=== PATIENT | male | born 1995 ===

== ENCOUNTER 2018-01-05 19:43 | Emergency (ER) | payer SELFPAY | END 2018-01-05 20:31 | disposition left against medical advice (07) | LOC: ER 19:43 | DX: Z53.20 Procedure and treatment not carried out because of patient's decision for unspecified reasons (principal) ==

== ENCOUNTER 2018-01-06 18:54 | Emergency (ER) | payer SELFPAY ==
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
== END 2018-01-06 20:27 | disposition left against medical advice (07) ==
LOC: ER 18:54
DX: S09.92XA Unspecified injury of nose, initial encounter (principal); W51.XXXA Accidental striking against or bumped into by another person, initial encounter
CPT/HCPCS: 99281

== ENCOUNTER 2018-08-11 05:25 | Emergency (ER) | payer SELFPAY ==
--- NOTE | 2018-08-11 05:43 | Emergency Department Record ---
History of Present Illness - General Chief complaint: Extremity Problem Stated complaint: FINGER INFECTION Time Seen by Provider: 08/11/18 05:42 Source: Patient Mode of Arrival: Ambulatory Limitations: No limitations - History of Present Illness Initial comments: pt started having swelling and pain in his r ring finger 6 days ago. he does not recall an injury or a puncture. he decided to cut it open 4 days ago and it got worse. he went to an urgent care yesterday and they started him on a "strong" antibiotic that you take twice a day, he does not recall what it is. he took an extra dose of the abx MD Complaint: Extremity pain, Extremity swelling Onset/Timin -: Days(s) Location: Right History of Same: No Radiation: None Severity scale (1-10): 10 Quality: Burning Consistency: Constant Improves with: Cold therapy Worsens with: Nothing Associated Symptoms: Denies other symptoms - Related Data Previous Rx's Medication Instructions Recorded Hydrocodone/Acetaminophen [[place] 1 each PO Q6HR #7 tablet 08/11/18 5-325 Tablet] Allergies Allergy/AdvReac Type Severity Reaction Status Date / Time No Known Drug Allergies Allergy Verified 01/06/18 19:23 Travel Screening - Travel/Exposure Within Last 30 Days Have you traveled within the last 30 days?: No - Travel/Exposure Within Last Year Have you traveled outside the [place] in the last year?: No - Additonal Travel Details Have you been exposed to anyone with a communicable illness?: No - Travel Symptoms Symptom Screening: None Review of Systems Reviewed: No additional complaints except as noted below Constitutional: Reports: As per HPI. Denies: Chills, Fever, Malaise, Night sweats, Weakness, Weight change Eyes: Reports: As per HPI. Denies: Eye discharge, Eye pain, Photophobia, Vision change ENT: Reports: As per HPI. Denies: Congestion, Dental pain, Ear pain, Epistaxis , Hearing loss, Throat pain Respiratory: Reports: As per HPI. Denies: Cough, Dyspnea, Hemoptysis, Stridor, Wheezes Cardiovascular: Reports: As per HPI. Denies: Arrhythmia, Chest pain, Dyspnea on exertion, Edema, Murmurs, Orthopnea, Palpitations, Paroxysmal nocturnal dyspnea, Rheumatic Fever, Syncope Endocrine: Reports: As per HPI. Denies: Fatigue, Heat or cold intolerance, Polydipsia, Polyuria Gastrointestinal: Reports: As per HPI. Denies: Abdominal pain, Constipation, Diarrhea, Hematemesis, Hematochezia, Melena, Nausea, Vomiting Genitourinary: Reports: As per HPI. Denies: Dysuria, Frequency, Hematuria, Incontinence, Retention, Testicular pain, Testicular mass, Urgency Musculoskeletal: Reports: As per HPI, Other. Denies: Arthralgia, Back pain, Gout, Joint swelling, Myalgia, Neck pain Skin: Reports: As per HPI. Denies: Bruising, Change in color, Change in hair/ nails, Lesions, Pruritus, Rash Neurological: Reports: As per HPI. Denies: Abnormal gait, Confusion, Headache, Numbness, Paresthesias, Seizure, Tingling, Tremors, Vertigo, Weakness Psychiatric: Reports: As per HPI. Denies: Anxiety, Auditory hallucinations, Depression, Homicidal thoughts, Suicidal thoughts, Visual hallucinations Hematological/Lymphatic: Reports: As per HPI. Denies: Anemia, Blood Clots, Easy bleeding, Easy bruising, Swollen glands Past Medical History - SOCIAL HISTORY Smoking Status: Never smoker Alcohol Use: Occasional Drug Use: Heavy Drug Use Detail:: Marijuana - RESPIRATORY Hx Respiratory Disorders: No - CARDIOVASCULAR Hx Cardio Disorders: No - NEURO Hx Neuro Disorders: No - GI Hx GI Disorders: No - Hx Genitourinary Disorders: No - ENDOCRINE Hx Endocrine Disorders: No - MUSCULOSKELETAL Hx Musculoskeletal Disorders: No - PSYCH Hx Psych Problems: No - HEMATOLOGY/ONCOLOGY Hx Hematology/Oncology Disorders: No Family Medical History Any Significant Family History?: No Hx Cancer: Grandparents *Cancer Comment: Aunt (Breast) Physical Exam - General General Appearance: Alert, Oriented x3, Cooperative, Mild distress - Head Head exam: Normal inspection - Eye Eye exam: Normal appearance, PERRL, EOMI Pupils: Normal accommodation - ENT ENT exam: Normal exam, Mucous membranes moist, Normal external ear exam, Normal orophraynx Ear exam: Normal external inspection. negative: External canal tenderness Nasal Exam: Normal inspection. negative: Discharge, Sinus tenderness Mouth exam: Normal external inspection, Tongue normal Teeth exam: Normal inspection. negative: Dental caries Throat exam: Normal inspection. negative: Tonsillar erythema, Tonsillar exudate - Neck Neck exam: Normal inspection, Full ROM. negative: Tenderness - Respiratory Respiratory exam: Normal lung sounds bilaterally. negative: Respiratory distress - Cardiovascular Cardiovascular Exam: Regular rate, Normal rhythm, Normal heart sounds - GI/Abdominal GI/Abdominal exam: Soft, Normal bowel sounds. negative: Tenderness - Rectal Rectal exam: Deferred - exam: Deferred - Extremities Extremities exam: Normal capillary refill, Tenderness. negative: Full ROM Image of Hand: 1 - swelling, erythema, lrom, 2 superficial lacerations 1 is oozing purulent drainage - Back Back exam: Reports: Normal inspection, Full ROM. Denies: Muscle spasm, Rash noted, Tenderness - Neurological Neurological exam: Alert, Normal gait, Oriented X3, Reflexes normal - Psychiatric Psychiatric exam: Normal affect, Normal mood - Skin Skin exam: Dry, Intact, Normal color, Warm Course Vital Signs 08/11/18 05:30 Temperature 98.9 F Pulse Rate [ 64 Pulse Ox Probe] Respiratory 20 Rate Blood Pressure 130/88 [Left Arm] Pulse Ox 100 - Reevaluation(s) Reevaluation #1: 08/11/18 07:30 d/w dr godinez who will do surgery here tomorrow on finger Medical Decision Making - Lab Data Result diagrams: 08/11/18 06:15 Disposition Disposition: Discharge Clinical Impression: Cellulitis and abscess of finger, unspecified Disposition: Home, Self-Care Condition: (1) Good Instructions: Cellulitis (ED) Additional Instructions: do not eat anything or drink anything after midnight. elevate hand. continue antibiotics. return tomorrow for surgery. Dr Godinez will call you but if you havent heard call [phone] Prescriptions: Hydrocodone/Acetaminophen [[place] 5-325 Tablet] 1 each PO Q6HR #7 tablet Referrals: JUAN PABLO GODINEZ M.D. [MEDICAL DOCTOR] - Forms: Patient Portal Access Quality - Quality Measures Quality Measures: N/A - Blood Pressure Screening Does Patient Have Any of the Following: No Blood Pressure Classification: Hypertensive Reading Systolic Measurement: 135 Diastolic Measurement: 93 Screening for High Blood Pressure: < Pre-Hypertensive BP, F/U Documented > [ G8950] Pre-Hypertensive Follow-up Interventions: Follow-up with rescreen every year.
[2018-08-11] MEDS ORDERED: KETOROLAC 30 MG/ML VIAL IVP ONE (05:51)
[2018-08-11] MEDS ORDERED: AMPICILLIN SODIUM/SULBACTAM NA 3 G in 0.9 % SODIUM CHLORIDE 100ML 100 ML IVPB ONE (05:51)
[2018-08-11 06:22] LABS: BASO % 0.3 % (0-6); EOS % 3.9 % (0-6); GRAN % 77.3 % (47-80); HEMATOCRIT 38.9 % (42.0-52.0); HEMOGLOBIN 12.8 gm/dl (14.0-18.0); LYMPH % 10.5 % (16-45); MEAN CELL VOLUME 83.8 fl (81-97); MEAN CORPUSCULAR HEMOGLOBIN 27.5 pg (27-33); MEAN CORPUSCULAR HGB CONC 32.9 g/dl (32-36); MEAN PLATELET VOLUME 10.6 fl (7.4-10.4); PLATELET COUNT 180 K/uL (130-400); RED BLOOD COUNT 4.64 M/uL (4.40-5.70); RED CELL DISTRIBUTION WIDTH 12.7 % (11.5-14.5); WHITE BLOOD COUNT W/O DIFF 7.2 K/uL (4.2-12.2)
[2018-08-11] MEDS ORDERED: ONDANSETRON HCL IV 4 MG/2 ML VIAL IVP ONE (07:29)
[2018-08-11] MEDS ORDERED: HYDROMORPHONE HCL 2 MG/ML VIAL IVP ONE (07:29)
--- NOTE | 2018-08-13 05:20 | RADIOLOGY REPORT ---
DATE: 08/11/2018. EXAM: RIGHT FINGER RADIOGRAPHS. HISTORY: CLINICAL EVIDENCE OF RIGHT HAND INFECTION FOR SIX DAYS. TECHNIQUE: Three views of the right hand index finger. COMPARISON: None. FINDINGS: Focal soft tissue swelling of the ring finger at the level of the middle phalanx. No radiopaque foreign body detected. No underlying fracture or osseous erosion is appreciated. No joint dislocation. IMPRESSION: FOCAL, NONSPECIFIC SOFT TISSUE SWELLING AT THE MID ASPECT OF THE RING FINGER WITHOUT DEFINITE UNDERLYING OSSEOUS ABNORMALITY. JOB NUMBER: [id number] MTDD
== END 2018-08-11 08:06 | disposition home or self-care (01) ==
LOC: ER 05:25
DX: L03.011 Cellulitis of right finger (principal)
CPT/HCPCS: 73140; 85025; 96365; 96375; 99284; J0295; J1885; J2405

== ENCOUNTER 2018-08-12 08:10 | Day surgery (SDC) | payer SELFPAY ==
[2018-08-12] MEDS ORDERED: ACETAMINOPHEN 1,000 MG/100 ML BTL IV ONE (08:11)
[2018-08-12] MEDS ORDERED: BUPIVACAINE 0.5% (5MG/ML) PF 30ML VIAL IVP ONE (08:11)
[2018-08-12] MEDS ORDERED: PROPOFOL 10 MG/ML VIAL IV ONE (08:11)
[2018-08-12] MEDS ORDERED: MIDAZOLAM HCL 2MG/2ML VIAL IV ONE (08:11)
[2018-08-12] MEDS ORDERED: CEFAZOLIN 1 Gram 1 GM/50 ML BAG IVPB ONE (08:11)
[2018-08-12] MEDS ORDERED: LIDOCAINE 2% MDV (20MG/ML) 20ML VIAL IV ONE (08:11)
[2018-08-12] MEDS ORDERED: LIDOCAINE 1% MDV (10MG/ML) 20ML VIAL SQ ONE (08:11)
[2018-08-12] MEDS ORDERED: FENTANYL PF 100MCG/2ML VIAL IV ONE (08:11)
[2018-08-12] MEDS ORDERED: KETOROLAC 30 MG/ML VIAL IVP ONE (08:11)
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
== END 2018-08-12 11:35 | disposition home or self-care (01) ==
LOC: SUR 08:10
PROVIDERS: ATTEND Orthopaedic Surgery
DX: M65.142 Other infective (teno)synovitis, left hand (principal)
CPT/HCPCS: J1885